=== PATIENT | male | born 1995 | race Caucasian/White ===

== ENCOUNTER 2016-12-28 09:11 | Emergency (ER) | payer OTHER ==
[~2016-12-28] VITALS: Ht 177.8 cm; Wt 73.1 kg
[2016-12-28 09:15] VITALS: BP 139/79
[2016-12-28] MEDS ORDERED: METHOCARBAMOL 500 MG TABLET PO ONE (10:00)
[2016-12-28] MEDS ORDERED: ACETAMINOPHEN/CODEINE 300-30 MG TABLET PO ONE (10:00)
== END 2016-12-28 10:44 | disposition home or self-care (01) ==
LOC: EMS 09:12
DX: S16.1XXA Strain of muscle, fascia and tendon at neck level, initial encounter (principal); X58.XXXA Exposure to other specified factors, initial encounter; Y93.89 Activity, other specified; Y92.89 Other specified places as the place of occurrence of the external cause; Y99.8 Other external cause status
CPT/HCPCS: 99283